=== PATIENT | male | born 1950 | race Caucasian/White ===

== ENCOUNTER 2018-04-18 10:21 | Day surgery (SDC) | payer MEDICARE, OTHER ==
[2018-04-18] MEDS ORDERED: LIDOCAINE 2% MDV (20MG/ML) 20ML VIAL IV ONE (10:22)
[2018-04-18] MEDS ORDERED: PROPOFOL 10 MG/ML VIAL IV ONE (10:22)
--- NOTE | 2018-04-18 15:31 | Operative Note ---
DATE OF SURGERY: 04/18/2018 OPERATION: COLONOSCOPY to the cecum with cold biopsy forceps polypectomy. INDICATION: Prior history of colon polyps. The patient recalls his last examination was some 15 years ago. He presents today for surveillance. He thought he had 2-3 polyps noted previously. ANESTHESIA: Intravenous sedation was administered by the department of anesthesiology and included Diprivan titrated to effect. PROCEDURE: Following informed consent from this alert individual including a discussion of the risks and benefits of the procedure and an opportunity for the patient to ask questions, the patient was in the left lateral decubitus position. A digital rectal examination was performed. No abnormalities were noted. Following this, the Olympus [id number] video colonoscope was inserted into the rectum without resistance. The rectal mucosa had a normal appearance with normal folds and distensibility. The colonoscope was advanced up through the bowel to the level of the cecum without much difficulty. Throughout the bowel the mucosa appeared normal, the folds were normal, and the bowel was fairly well distensible. In the ascending colon, there was a 3-4 mm sessile polyp noted which was removed with application of cold biopsy forceps. The colon preparation was adequate. Washing and suctioning was employed for some residual liquid and semi-liquid stool. The cecum was defined by noting the appendiceal orifice and ileocecal valve. From the base of the cecum, the colonoscope was then slowly withdrawn. No abnormalities were detected throughout. Retroflexion in the rectum was endoscopically normal. The instrument was straightened and removed. The patient tolerated the procedure well and was returned to the recovery area in stable condition. IMPRESSION: 1. A 3-4 mm ascending colon polyp. 2. Otherwise unremarkable colonoscopy to the cecum. RECOMMENDATIONS: The patient was advised to have recheck colonoscopy based on pathology, which may be 5 years' time. The preparation was adequate although there was some retained liquid and semi-liquid stool noted which was washed and suctioned vigorously. Followup will also be with FAUSTINO Salinas. As always, thank you for allowing me to participate in the care of your patient. MICHELE
== END 2018-04-18 12:50 | disposition home or self-care (01) ==
LOC: HOP 10:21
PROVIDERS: ATTEND Internal Medicine Gastroenterology
DX: Z12.11 Encounter for screening for malignant neoplasm of colon (principal); Z86.010 Personal history of colon polyps; D12.2 Benign neoplasm of ascending colon; E11.9 Type 2 diabetes mellitus without complications; I10 Essential (primary) hypertension; E78.00 Pure hypercholesterolemia, unspecified